=== PATIENT | male | born 1965 | race Caucasian/White ===

== ENCOUNTER 2016-07-09 18:46 | Inpatient (IN) | payer OTHER ==
[~2016-07-09] VITALS: Ht 167.6 cm; Wt 91.9 kg
[2016-07-09 01:40] VITALS: BP 160/96
[~2016-07-09 18:46] MED LIST: AMLODIPINE-BEN1 EACH PO; ASPIR-LOW81 MG PO; BENAZEPRIL HCL10 MG PO; EFFEXOR XR150 MG PO; FOLIC ACID1 MG PO; GEMFIBROZIL600 MG PO; GLUCOPHAGE500 MG PO; HUMULIN N100 UNITS/ SC; INSULIN SYRING1 EA11 MC; LANTUS (UNITS)1 UNIT IV; LANTUS 10100 UNITS/ SC; LEVEMIR FL100 UNITS/ SC; LEVEMIR100 UNIT/2 SC; LISINOPRIL5 MG PO; LO-DOSE ASPIRIN81 M1 PO; LOPID600 MG PO; LORTAB 5-325 M1 EACH PO; LOTENSIN10 MG PO; METFORMIN HCL500 MG PO; NOVOLIN N100 UNITS/ SQ; NOVOLOG 10100 UNITS/ SC; NOVOLOG PE100 UNITS/ SC; NOVOLOG100 UNIT/1 SC; PANTOPRAZOLE SO40 MG PO; PRILOSEC20 MG PO; PROTONIX40 MG PO; TUMS500 MG PO; URSODIOL300 MG PO; VENLAFAXINE HC150 M1 PO
[2016-07-09 19:21] LABS: HEMATOCRIT 37.2 % (38.0-50.0); MCH 25.6 PG (29.0-34.0); MCHC 33.1 G/DL (30.0-36.0); MCV 77.5 FL (86-99); PLATELET COUNT 283 K/uL (156-360); RBC DIS.WIDTH-CV 16.1 % (11.8-14.6); RBC DIS.WIDTH-SD 44.7 % (39-53); WHITE BLOOD COUNT 7.9 K/uL (4.1-10.2)
[2016-07-09 19:28] LABS: CHLORIDE 89 mEq/L (99-109); POTASSIUM 5.4 mEq/L (3.7-5.4); SODIUM 120 mEq/L (136-147)
[2016-07-09 19:31] LABS: ANION GAP 18 MEQ/L (2-14)
[2016-07-09 19:32] LABS: TOTAL BILIRUBIN 0.3 mg/dL (0.0-1.0)
[2016-07-09 19:33] LABS: ALKALINE PHOSPHATASE 172 IU/L (3-129)
[2016-07-09 19:34] LABS: GFR ESTIMATE (CALCULATED) 30 mL/min/
[2016-07-09 19:35] LABS: UREA NITROGEN (BUN) 50 mg/dL (9-23)
[2016-07-09 19:46] LABS: GLUCOSE 739 mg/dL (70-99)
[2016-07-09 19:58] LABS: CARBON DIOXIDE (BICARBONATE) 15.6 MEQ/L (20-31)
[2016-07-09 20:14] LABS: TROP-I INTERPRETATION NEGATIVE; TROPONIN-I 0.01 ng/mL (0.0-0.30)
[2016-07-09 20:52] LABS: ADD MIUA? NO; BILIRUBIN NEGATIVE; BLOOD NEGATIVE; COLOR STRAW ((YELLOW)); GLUCOSE (STRIP) >=500; KETONES 20; LEUKOCYTES NEGATIVE; NITRITE NEGATIVE; PROTEIN (STRIP) 30; UCUL ADDED? NO; UROBILINOGEN 0.2 MG/DL (0.2-1.0)
[2016-07-09] MEDS ORDERED: LISINOPRIL10 MG PO (21:45)
[2016-07-09] MEDS ORDERED: TRESIBA FL200 UNIT/1 SC (21:47)
[2016-07-09] MEDS ORDERED: CITALOPRAM HBR10 MG PO (21:47)
[2016-07-09] MEDS ORDERED: OMEPRAZOLE20 M2 PO (21:47)
[2016-07-09] MEDS ORDERED: NOVOLOG PE100 UNITS/ SC (21:47)
[2016-07-09] MEDS ORDERED: SIMVASTATIN20 MG PO (21:47)
[2016-07-10] VITALS (11 sets, daily range): BP systolic 106–160; BP diastolic 63–96
[2016-07-10 00:32] LABS: POTASSIUM 5.2 mEq/L (3.7-5.4)
[2016-07-10 00:35] LABS: ANION GAP 15 MEQ/L (2-14)
[2016-07-10 00:37] LABS: GFR ESTIMATE (CALCULATED) 38 mL/min/
[2016-07-10 00:38] LABS: UREA NITROGEN (BUN) 45 mg/dL (9-23)
[2016-07-10 00:49] LABS: CHLORIDE 98 mEq/L (99-109); GLUCOSE 450 mg/dL (70-99); SODIUM 130 mEq/L (136-147)
[2016-07-10 01:03] LABS: POINT-OF-CARE METER ID UU14100415
[2016-07-10 02:11] LABS: POINT-OF-CARE METER ID UU14162636
[2016-07-10 02:54] LABS: METH RESISTANT S AUREUS PCR NEGATIVE (NEGATIVE)
[2016-07-10 02:56] LABS: PROBE CHECK PASS; SPECIMEN PROCESSING CONTROL PASS
[2016-07-10 03:14] LABS: POINT-OF-CARE METER ID UU14162636
[2016-07-10 04:14] LABS: POINT-OF-CARE METER ID UU14162636
[2016-07-10 04:36] LABS: CHLORIDE 102 mEq/L (99-109); POTASSIUM 4.5 mEq/L (3.7-5.4); SODIUM 132 mEq/L (136-147)
[2016-07-10 04:40] LABS: ANION GAP 15 MEQ/L (2-14)
[2016-07-10 04:42] LABS: GFR ESTIMATE (CALCULATED) 45 mL/min/
[2016-07-10 04:43] LABS: GLUCOSE 200 mg/dL (70-99); UREA NITROGEN (BUN) 39 mg/dL (9-23)
[2016-07-10 05:19] LABS: POINT-OF-CARE METER ID UU14162636
[2016-07-10 06:38] LABS: POINT-OF-CARE METER ID UU14162636
[2016-07-10 07:21] LABS: POINT-OF-CARE METER ID UU14162636
[2016-07-10 08:18] LABS: POINT-OF-CARE METER ID UU14162636
[2016-07-10 08:39] LABS: Estimated Average Glucose 415 mg/dL (70-123)
[2016-07-10 08:41] LABS: HEMOGLOBIN A1c (GLYCOHEMOGLOB) 16.1 % HGB (Below 5.7)
[2016-07-10 09:19] LABS: POINT-OF-CARE METER ID UU14162636
[2016-07-10 09:19] LABS: ANION GAP 10 MEQ/L (2-14); CHLORIDE 102 MEQ/L (99-109); POTASSIUM 3.7 MEQ/L (3.7-5.4); SAMPLE HEMOLYSIS CHECK 0; SAMPLE ICTERIC CHECK 0; SAMPLE LIPEMIA CHECK 0; SODIUM 136 MEQ/L (136-147)
[2016-07-10 09:25] LABS: GFR ESTIMATE (CALCULATED) 57 mL/min/; GLUCOSE 140 mg/dL (70-99); UREA NITROGEN (BUN) 36 mg/dL (9-23)
[2016-07-10 10:40] LABS: POINT-OF-CARE METER ID UU14162636
[2016-07-10 10:50] LABS: POINT-OF-CARE METER ID UU14100415; POINT-OF-CARE USER ID NUTMMM10
[2016-07-10 10:50] LABS: POINT-OF-CARE METER ID UU14100415
[2016-07-10 10:50] LABS: POINT-OF-CARE METER ID UU14100415
[2016-07-10 11:31] LABS: POINT-OF-CARE METER ID UU14162636
[2016-07-10 12:38] LABS: POINT-OF-CARE METER ID UU14162636
[2016-07-10 12:50] LABS: ANION GAP 10 MEQ/L (2-14); CHLORIDE 102 MEQ/L (99-109); GFR ESTIMATE (CALCULATED) > 59 mL/min/; GLUCOSE 154 mg/dL (70-99); HDL CHOLESTEROL 27 MG/DL (Desirable>=40); NON-HDL CHOLESTEROL 221 mg/dL (Desirable<160); POTASSIUM 4.4 MEQ/L (3.7-5.4); SAMPLE HEMOLYSIS CHECK 0; SAMPLE ICTERIC CHECK 0; SAMPLE LIPEMIA CHECK 0; SODIUM 135 MEQ/L (136-147); TOTAL CHOLESTEROL 248 mg/dL (Desirable<200); TRIGLYCERIDES 928 MG/DL (Normal: <150); UREA NITROGEN (BUN) 33 mg/dL (9-23)
[2016-07-10 17:28] LABS: ANION GAP 12 MEQ/L (2-14); CHLORIDE 99 MEQ/L (99-109); GFR ESTIMATE (CALCULATED) 52 mL/min/; GLUCOSE 360 mg/dL (70-99); POTASSIUM 4.3 MEQ/L (3.7-5.4); SAMPLE HEMOLYSIS CHECK 0; SAMPLE ICTERIC CHECK 0; SAMPLE LIPEMIA CHECK 0; SODIUM 130 MEQ/L (136-147); UREA NITROGEN (BUN) 31 mg/dL (9-23)
[2016-07-10 17:31] LABS: POINT-OF-CARE METER ID UU14162636
[2016-07-11 00:14] VITALS: BP 150/94
[2016-07-11 07:53] VITALS: BP 139/86
[2016-07-11 08:38] LABS: POINT-OF-CARE METER ID UU13113807; POINT-OF-CARE USER ID 606021404
[2016-07-11 09:06] LABS: GFR ESTIMATE (CALCULATED) > 59 mL/min/; GLUCOSE 229 mg/dL (70-99); SODIUM 132 MEQ/L (136-147); UREA NITROGEN (BUN) 21 mg/dL (9-23)
[2016-07-11 09:07] LABS: ANION GAP 12 MEQ/L (2-14); CHLORIDE 99 MEQ/L (99-109); SAMPLE HEMOLYSIS CHECK 0; SAMPLE ICTERIC CHECK 0; SAMPLE LIPEMIA CHECK 0
[2016-07-11 10:00] LABS: POINT-OF-CARE METER ID UU14162636; POINT-OF-CARE USER ID PHATLC
[2016-07-11 12:18] LABS: POINT-OF-CARE METER ID UU13113807
[2016-07-11 15:38] VITALS: BP 123/75
[2016-07-11 17:16] LABS: POINT-OF-CARE METER ID UU13113698; POINT-OF-CARE USER ID 606021404
[2016-07-11 20:00] VITALS: BP 122/81
[2016-07-12] VITALS: BP 143/84
[2016-07-12 01:07] LABS: POINT-OF-CARE METER ID UU13113807
[2016-07-12 05:05] LABS: POINT-OF-CARE METER ID UU13113807
[2016-07-12 05:56] LABS: ALKALINE PHOSPHATASE 137 IU/L (3-129); ANION GAP 13 MEQ/L (2-14); CHLORIDE 102 MEQ/L (99-109); GFR ESTIMATE (CALCULATED) 57 mL/min/; GLUCOSE 220 mg/dL (70-99); POTASSIUM 4.1 MEQ/L (3.7-5.4); SAMPLE HEMOLYSIS CHECK 0; SAMPLE ICTERIC CHECK 0; SAMPLE LIPEMIA CHECK 0; SODIUM 134 MEQ/L (136-147); TOTAL BILIRUBIN 0.3 MG/DL (0.0-1.0); UREA NITROGEN (BUN) 22 mg/dL (9-23)
[2016-07-12 06:53] LABS: HEMATOCRIT 30.2 % (38.0-50.0); MCH 25.7 PG (29.0-34.0); MCHC 32.8 G/DL (30.0-36.0); MCV 78.4 FL (86-99); RBC DIS.WIDTH-CV 15.9 % (11.8-14.6); RBC DIS.WIDTH-SD 44.5 % (39-53); RED BLOOD COUNT 3.85 M/uL (4.00-5.50)
[2016-07-12 07:58] LABS: MEAN PLAT.VOLUME 12.4 uM^3 (9.0-12.4); PLAT.SUFFICIENCY ADEQUATE
[2016-07-12 08:00] VITALS: BP 134/82
[2016-07-12 08:00] LABS: PLATELET COUNT 194 K/uL (156-360)
[2016-07-12 08:33] LABS: POINT-OF-CARE METER ID UU13113807
[2016-07-12 16:00] VITALS: BP 130/82
[2016-07-12 17:44] LABS: POINT-OF-CARE METER ID UU13113807
[2016-07-12 21:52] LABS: POINT-OF-CARE METER ID UU13113807
[2016-07-12 23:25] VITALS: BP 114/66
[2016-07-13 06:26] LABS: ANION GAP 12 MEQ/L (2-14); CHLORIDE 101 MEQ/L (99-109); GFR ESTIMATE (CALCULATED) 52 mL/min/; GLUCOSE 284 mg/dL (70-99); POTASSIUM 4.5 MEQ/L (3.7-5.4); SAMPLE HEMOLYSIS CHECK 0; SAMPLE ICTERIC CHECK 0; SAMPLE LIPEMIA CHECK 0; SODIUM 135 MEQ/L (136-147); UREA NITROGEN (BUN) 25 mg/dL (9-23)
[2016-07-13 08:00] VITALS: BP 141/86
[2016-07-13 08:35] LABS: POINT-OF-CARE METER ID UU13113807
[2016-07-13] MEDS ORDERED: ZOLPIDEM TARTRAT5 MG PO (12:09)
[2016-07-13 12:57] LABS: POINT-OF-CARE METER ID UU13113807
[2016-07-13 13:00] LABS: POINT-OF-CARE METER ID UU13113807
[2016-07-13 13:01] LABS: POINT-OF-CARE METER ID UU13113698
== END 2016-07-13 14:10 | disposition home or self-care (01) | DRG 639 ==
LOC: EME 18:46 → EDOF 23:51 → 4WEST 23:51 → 4SOUTH 23:51 → 4WEST 07-10 01:20 → 4SOUTH 07-10 23:52
PROVIDERS: Emergency Medicine; Hospitalist; Internal Medicine; Internal Medicine Critical Care Medicine; Internal Medicine Nephrology
DX: E13.10 Other specified diabetes mellitus with ketoacidosis without coma (principal); Z79.4 Long term (current) use of insulin; Z91.120 Patient's intentional underdosing of medication regimen due to financial hardship; F32.9 Major depressive disorder, single episode, unspecified; K21.9 Gastro-esophageal reflux disease without esophagitis; E78.5 Hyperlipidemia, unspecified; I10 Essential (primary) hypertension; F41.9 Anxiety disorder, unspecified; Z87.891 Personal history of nicotine dependence; D64.9 Anemia, unspecified
CPT/HCPCS: 71010; 80048; 80048 91; 80053; 80061; 81003; 82010; 82803; 82948; 83036; 84100; 84484; 85027; 87641; 93005; 99281; 99285; G0480; J1815; J7030; J7042; J7050; J7120

== ENCOUNTER 2016-07-25 00:21 | Emergency (ER) | payer OTHER ==
[~2016-07-25] VITALS: Ht 167.6 cm; Wt 93.7 kg
[~2016-07-25 00:21] MED LIST changes: +CITALOPRAM HBR10 MG PO; +LISINOPRIL10 MG PO; +OMEPRAZOLE20 M2 PO; +SIMVASTATIN20 MG PO; +TRESIBA FL200 UNIT/1 SC; +ZOLPIDEM TARTRAT5 MG PO
[2016-07-25 00:38] LABS: POINT-OF-CARE METER ID UU13113778
[2016-07-25 00:51] LABS: HEMATOCRIT 36.2 % (38.0-50.0); MCH 28.9 PG (29.0-34.0); MCHC 37.3 G/DL (30.0-36.0); MCV 77.5 FL (86-99); MEAN PLAT.VOLUME 12.6 uM^3 (9.0-12.4); RBC DIS.WIDTH-CV 15.4 % (11.8-14.6); RBC DIS.WIDTH-SD 42.5 % (39-53); WHITE BLOOD COUNT 7.1 K/uL (4.1-10.2)
[2016-07-25 00:52] LABS: PLATELET COUNT 359 K/uL (156-360); RED BLOOD COUNT 4.67 M/uL (4.00-5.50)
[2016-07-25 02:02] LABS: ALKALINE PHOSPHATASE 139 IU/L (3-129); ANION GAP 16 MEQ/L (2-14); CHLORIDE 95 MEQ/L (99-109); GFR ESTIMATE (CALCULATED) 34 mL/min/; GLUCOSE 388 mg/dL (70-99); SAMPLE HEMOLYSIS CHECK 1; SAMPLE ICTERIC CHECK 0; SAMPLE LIPEMIA CHECK 1; SODIUM 130 MEQ/L (136-147); TOTAL BILIRUBIN 0.2 MG/DL (0.0-1.0); UREA NITROGEN (BUN) 45 mg/dL (9-23)
[2016-07-25 02:04] LABS: ADD MIUA? YES; BILIRUBIN NEGATIVE; BLOOD NEGATIVE; COLOR STRAW ((YELLOW)); GLUCOSE (STRIP) >=500; KETONES NEGATIVE; LEUKOCYTES NEGATIVE; NITRITE NEGATIVE; PROTEIN (STRIP) 100; SPECIFIC GRAVITY 1.014 (1.000-1.030); UROBILINOGEN 0.2 MG/DL (0.2-1.0)
[2016-07-25 02:06] LABS: POINT-OF-CARE METER ID UU13113702
[2016-07-25 02:07] LABS: POTASSIUM 4.1 MEQ/L (3.7-5.4)
[2016-07-25 02:09] LABS: BACTERIA NONE SEEN /HPF; EPITHELIAL CELLS RARE /HPF; MUCUS NONE SEEN /LPF; RED BLOOD CELLS 0-5 /HPF (0-5); UCUL ADDED? NO; WHITE BLOOD CELLS 0-5 /HPF (0-5)
[2016-07-25 03:06] VITALS: BP 148/89
[2016-07-25 03:12] LABS: POINT-OF-CARE METER ID UU14100415; POINT-OF-CARE USER ID 515033160
== END 2016-07-25 03:07 | disposition home or self-care (01) ==
LOC: EXP 00:21 → EME 00:21 → EXP 03:07
PROVIDERS: Physician Assistant
DX: E11.65 Type 2 diabetes mellitus with hyperglycemia (principal); T38.3X6A Underdosing of insulin and oral hypoglycemic [antidiabetic] drugs, initial encounter; Z91.128 Patient's intentional underdosing of medication regimen for other reason; I10 Essential (primary) hypertension; K21.9 Gastro-esophageal reflux disease without esophagitis; R56.9 Unspecified convulsions; F32.9 Major depressive disorder, single episode, unspecified; Z87.891 Personal history of nicotine dependence
CPT/HCPCS: 80053; 81003; 82948; 85027; 99281; 99284; J7030

== ENCOUNTER 2016-11-17 08:03 | Inpatient (IN) | payer OTHER ==
[~2016-11-17] VITALS: Ht 167.6 cm; Wt 93.5 kg
[2016-11-17 08:24] LABS: POINT-OF-CARE METER ID UU13113778
[2016-11-17 09:47] LABS: EOSINOPHIL (%) 1.1 % (0-5); EOSINOPHIL COUNT 0.1 K/uL (0-0.3); HEMATOCRIT 33.5 % (38.0-50.0); IMMATURE GRANULOCYTE COUNT 0.1 K/uL; INSTRUMENT ABS NEUTROPHIL CT 8.8 K/uL; LYMPHOCYTE COUNT 2.4 K/uL (1.0-2.8); MCHC 33.4 G/DL (30.0-36.0); MCV 74.8 FL (86-99); MEAN PLAT.VOLUME 11.9 uM^3 (9.0-12.4); MONOCYTE (%) 6.1 % (3-12); MONOCYTE COUNT 0.8 K/uL (0-0.8); NEUTROPHIL (%) 72.2 % (45-76); NEUTROPHIL COUNT 8.8 K/uL (1.8-6.4); PLATELET COUNT 324 K/uL (156-360); RBC DIS.WIDTH-CV 14.2 % (11.8-14.6); RBC DIS.WIDTH-SD 37.5 % (39-53); RED BLOOD COUNT 4.48 M/uL (4.00-5.50); WHITE BLOOD COUNT 12.3 K/uL (4.1-10.2)
[2016-11-17 09:49] LABS: CHLORIDE 84 mEq/L (99-109); POTASSIUM 4.4 mEq/L (3.7-5.4)
[2016-11-17 09:51] LABS: GLUCOSE 397 mg/dL (70-99)
[2016-11-17 09:52] LABS: ANION GAP 18 MEQ/L (2-14)
[2016-11-17 09:53] LABS: TOTAL BILIRUBIN 0.3 mg/dL (0.0-1.0)
[2016-11-17 09:54] LABS: ALKALINE PHOSPHATASE 175 IU/L (3-129)
[2016-11-17 09:55] LABS: GFR ESTIMATE (CALCULATED) 32 mL/min/; SODIUM 118 mEq/L (136-147)
[2016-11-17 09:56] LABS: UREA NITROGEN (BUN) 42 mg/dL (9-23)
[2016-11-17 10:15] LABS: BASE EXCESS -6.1 mEq/L (-3 to +3)
[2016-11-17 10:16] LABS: BICARBONATE 18.9 mEq/L (22-26); COMMENTS - BLOOD GASES C+; PCO2 35 mm Hg (35-45); PO2 75 mm Hg (80-100); SITE LR; TOTAL RESP RATE 18 resp/min; pH 7.34 (7.35-7.45)
[2016-11-17 10:35] LABS: ADD MIUA? NO; BILIRUBIN NEGATIVE; BLOOD NEGATIVE; COLOR YELLOW ((YELLOW)); GLUCOSE (STRIP) >=500; KETONES NEGATIVE; LEUKOCYTES NEGATIVE; NITRITE NEGATIVE; PROTEIN (STRIP) 30; SPECIFIC GRAVITY 1.011 (1.000-1.030); UCUL ADDED? NO; UROBILINOGEN 0.2 MG/DL (0.2-1.0)
[2016-11-17 13:27] LABS: POINT-OF-CARE METER ID UU13113747
[2016-11-17] MEDS ORDERED: BASAGLAR K100 UNIT/1 SC ×2 (16:05→16:06)
[2016-11-17 19:01] LABS: ANION GAP 13 MEQ/L (2-14); CHLORIDE 92 MEQ/L (99-109); GFR ESTIMATE (CALCULATED) 40 mL/min/; GLUCOSE 393 mg/dL (70-99); POTASSIUM 4.7 MEQ/L (3.7-5.4); SAMPLE HEMOLYSIS CHECK 1; SAMPLE ICTERIC CHECK 0; SAMPLE LIPEMIA CHECK 2; SODIUM 123 MEQ/L (136-147); UREA NITROGEN (BUN) 40 mg/dL (9-23)
[2016-11-17 22:29] LABS: ANION GAP 13 MEQ/L (2-14); CHLORIDE 92 MEQ/L (99-109); GFR ESTIMATE (CALCULATED) 42 mL/min/; GLUCOSE 460 mg/dL (70-99); POTASSIUM 5.1 MEQ/L (3.7-5.4); SAMPLE HEMOLYSIS CHECK 1; SAMPLE ICTERIC CHECK 0; SAMPLE LIPEMIA CHECK 2; SODIUM 121 MEQ/L (136-147); UREA NITROGEN (BUN) 38 mg/dL (9-23)
[2016-11-17 23:31] VITALS: BP 126/62
[2016-11-18 04:00] VITALS: BP 144/88
[2016-11-18 07:13] LABS: ANION GAP 11 MEQ/L (2-14); CHLORIDE 96 MEQ/L (99-109); GFR ESTIMATE (CALCULATED) 42 mL/min/; POTASSIUM 5.1 MEQ/L (3.7-5.4); SAMPLE HEMOLYSIS CHECK 1; SAMPLE ICTERIC CHECK 0; SAMPLE LIPEMIA CHECK 2; SODIUM 127 MEQ/L (136-147); UREA NITROGEN (BUN) 37 mg/dL (9-23)
[2016-11-18 07:14] LABS: GLUCOSE 484 mg/dL (70-99)
[2016-11-18 07:41] LABS: Estimated Average Glucose 395 mg/dL (70-123)
[2016-11-18 08:19] VITALS: BP 140/77
[2016-11-18 08:24] LABS: ANION GAP 10 MEQ/L (2-14); CHLORIDE 96 MEQ/L (99-109); GFR ESTIMATE (CALCULATED) 42 mL/min/; GLUCOSE 490 mg/dL (70-99); POTASSIUM 5.3 MEQ/L (3.7-5.4); SAMPLE HEMOLYSIS CHECK 1; SAMPLE ICTERIC CHECK 0; SAMPLE LIPEMIA CHECK 2; SODIUM 127 MEQ/L (136-147); UREA NITROGEN (BUN) 36 mg/dL (9-23)
[2016-11-18 09:28] LABS: HEMOGLOBIN A1c (GLYCOHEMOGLOB) 15.4 % HGB (Below 5.7)
[2016-11-18 14:12] LABS: ANION GAP 7 MEQ/L (2-14); CHLORIDE 97 MEQ/L (99-109); SAMPLE HEMOLYSIS CHECK 1; SAMPLE ICTERIC CHECK 0; SAMPLE LIPEMIA CHECK 2; SODIUM 125 MEQ/L (136-147)
[2016-11-18 14:28] LABS: GFR ESTIMATE (CALCULATED) 40 mL/min/; GLUCOSE 489 mg/dL (70-99); UREA NITROGEN (BUN) 34 mg/dL (9-23)
[2016-11-18 16:37] VITALS: BP 118/64
[2016-11-18 16:46] LABS: ANION GAP 12 MEQ/L (2-14); CHLORIDE 96 MEQ/L (99-109); GFR ESTIMATE (CALCULATED) 42 mL/min/; GLUCOSE 371 mg/dL (70-99); POTASSIUM 4.3 MEQ/L (3.7-5.4); SAMPLE HEMOLYSIS CHECK 1; SAMPLE ICTERIC CHECK 0; SAMPLE LIPEMIA CHECK 2; SODIUM 126 MEQ/L (136-147); UREA NITROGEN (BUN) 34 mg/dL (9-23)
[2016-11-18 19:30] VITALS: BP 123/68
[2016-11-18 20:19] LABS: ANION GAP 8 MEQ/L (2-14); CHLORIDE 96 MEQ/L (99-109); GFR ESTIMATE (CALCULATED) 45 mL/min/; GLUCOSE 388 mg/dL (70-99); POTASSIUM 4.6 MEQ/L (3.7-5.4); SAMPLE HEMOLYSIS CHECK 0; SAMPLE ICTERIC CHECK 0; SAMPLE LIPEMIA CHECK 1; SODIUM 125 MEQ/L (136-147); UREA NITROGEN (BUN) 33 mg/dL (9-23)
[2016-11-19 06:33] LABS: POINT-OF-CARE METER ID UU14117124
[2016-11-19 06:59] LABS: ALKALINE PHOSPHATASE 141 IU/L (3-129); ANION GAP 10 MEQ/L (2-14); CHLORIDE 100 MEQ/L (99-109); GFR ESTIMATE (CALCULATED) 45 mL/min/; GLUCOSE 342 mg/dL (70-99); POTASSIUM 4.4 MEQ/L (3.7-5.4); SAMPLE HEMOLYSIS CHECK 0; SAMPLE ICTERIC CHECK 0; SAMPLE LIPEMIA CHECK 1; TOTAL BILIRUBIN 0.3 MG/DL (0.0-1.0); UREA NITROGEN (BUN) 31 mg/dL (9-23)
[2016-11-19 07:00] LABS: HEMATOCRIT 31.8 % (38.0-50.0); MCH 24.5 PG (29.0-34.0); MCHC 31.4 G/DL (30.0-36.0); MCV 77.9 FL (86-99); RBC DIS.WIDTH-CV 14.4 % (11.8-14.6); RBC DIS.WIDTH-SD 40.3 % (39-53); RED BLOOD COUNT 4.08 M/uL (4.00-5.50); WHITE BLOOD COUNT 5.8 K/uL (4.1-10.2)
[2016-11-19 07:03] LABS: SODIUM 132 MEQ/L (136-147)
[2016-11-19 07:34] LABS: MEAN PLAT.VOLUME 11.6 uM^3 (9.0-12.4); PLAT.SUFFICIENCY ADEQUATE
[2016-11-19 07:57] LABS: PLATELET COUNT 216 K/uL (156-360)
[2016-11-19 08:14] VITALS: BP 131/73
[2016-11-19 11:23] LABS: POINT-OF-CARE METER ID UU14188577
[2016-11-19 17:22] VITALS: BP 133/73
[2016-11-19 23:44] VITALS: BP 145/82
[2016-11-20 06:44] LABS: POINT-OF-CARE METER ID UU14208753
[2016-11-20 07:50] VITALS: BP 139/85
[2016-11-20 15:44] VITALS: BP 134/77
[2016-11-20 16:58] LABS: POINT-OF-CARE METER ID UU14188577
[2016-11-20 17:00] LABS: POINT-OF-CARE METER ID UU14117124
[2016-11-20 17:00] LABS: POINT-OF-CARE METER ID UU14188577
[2016-11-20 17:00] LABS: POINT-OF-CARE METER ID UU14188577
[2016-11-21 00:31] VITALS: BP 130/68
[2016-11-21 06:25] LABS: HEMATOCRIT 30.4 % (38.0-50.0); MCHC 30.6 G/DL (30.0-36.0); MCV 78.4 FL (86-99); MEAN PLAT.VOLUME 11.9 uM^3 (9.0-12.4); PLATELET COUNT 191 K/uL (156-360); RBC DIS.WIDTH-CV 14.5 % (11.8-14.6); RBC DIS.WIDTH-SD 40.5 % (39-53); RED BLOOD COUNT 3.88 M/uL (4.00-5.50); WHITE BLOOD COUNT 6.4 K/uL (4.1-10.2)
[2016-11-21 06:32] LABS: POINT-OF-CARE METER ID UU14188577
[2016-11-21 07:00] LABS: ALKALINE PHOSPHATASE 127 IU/L (3-129); ANION GAP 8 MEQ/L (2-14); CHLORIDE 101 MEQ/L (99-109); GFR ESTIMATE (CALCULATED) 45 mL/min/; GLUCOSE 358 mg/dL (70-99); POTASSIUM 4.5 MEQ/L (3.7-5.4); SAMPLE HEMOLYSIS CHECK 0; SAMPLE ICTERIC CHECK 0; SAMPLE LIPEMIA CHECK 1; SODIUM 133 MEQ/L (136-147); UREA NITROGEN (BUN) 25 mg/dL (9-23)
[2016-11-21 07:02] LABS: TOTAL BILIRUBIN 0.2 MG/DL (0.0-1.0)
[2016-11-21 07:49] VITALS: BP 134/81
[2016-11-21 11:09] VITALS: BP 132/85
[2016-11-21 11:22] LABS: POINT-OF-CARE METER ID UU14117124
[2016-11-21 15:30] VITALS: BP 123/77
[2016-11-21 16:25] LABS: POINT-OF-CARE METER ID UU14188577
[2016-11-21 19:21] VITALS: BP 158/90
[2016-11-21 23:25] VITALS: BP 138/85
[2016-11-22 02:44] VITALS: BP 181/90
[2016-11-22 06:29] LABS: POINT-OF-CARE METER ID UU14208753
[2016-11-22 06:44] LABS: HEMATOCRIT 29.9 % (38.0-50.0); MCH 24.9 PG (29.0-34.0); MCHC 31.4 G/DL (30.0-36.0); MCV 79.3 FL (86-99); MEAN PLAT.VOLUME 11.7 uM^3 (9.0-12.4); PLATELET COUNT 169 K/uL (156-360); RBC DIS.WIDTH-CV 14.6 % (11.8-14.6); RBC DIS.WIDTH-SD 41.8 % (39-53); RED BLOOD COUNT 3.77 M/uL (4.00-5.50); WHITE BLOOD COUNT 5.9 K/uL (4.1-10.2)
[2016-11-22 07:11] LABS: ANION GAP 9 MEQ/L (2-14); CHLORIDE 102 MEQ/L (99-109); GFR ESTIMATE (CALCULATED) 52 mL/min/; GLUCOSE 204 mg/dL (70-99); POTASSIUM 4.1 MEQ/L (3.7-5.4); SAMPLE HEMOLYSIS CHECK 0; SAMPLE ICTERIC CHECK 0; SAMPLE LIPEMIA CHECK 0; SODIUM 137 MEQ/L (136-147); UREA NITROGEN (BUN) 26 mg/dL (9-23)
[2016-11-22 08:41] VITALS: BP 128/87
[2016-11-22 12:01] VITALS: BP 108/67
[2016-11-22 12:17] LABS: POINT-OF-CARE METER ID UU14208753
[2016-11-22 16:31] VITALS: BP 131/69
[2016-11-22 19:37] VITALS: BP 129/76
[2016-11-22] MEDS ORDERED: ARIPIPRAZOLE2 MG PO (20:19)
[2016-11-22] MEDS ORDERED: GUAIFENESI100 MG/5 M PO (20:20)
[2016-11-22] MEDS ORDERED: FLONASE16 G1 BOTH NARES (20:21)
[2016-11-22] MEDS ORDERED: PANTOPRAZOLE SO40 MG PO (20:22)
[2016-11-22] MEDS ORDERED: NOVOLOG PE100 UNITS/ SC (20:24)
[2016-11-22] MEDS ORDERED: LEVEMIR100 UNIT/2 SC ×2 (20:25→20:26)
== END 2016-11-22 21:55 | disposition home or self-care (01) | DRG 641 ==
LOC: EME 08:03 → 3EAST 12:10 → EDOF 12:10 → ENRESERV 12:33 → CANRESERV 12:33 → ENRESERV 13:47 → 3EAST 16:04
PROVIDERS: Emergency Medicine; Family Medicine; Internal Medicine; Internal Medicine Nephrology
DX: E87.1 Hypo-osmolality and hyponatremia (principal); N17.9 Acute kidney failure, unspecified; E11.65 Type 2 diabetes mellitus with hyperglycemia; E87.2 Acidosis; E87.5 Hyperkalemia; E86.0 Dehydration; R55 Syncope and collapse; F09 Unspecified mental disorder due to known physiological condition; F34.1 Dysthymic disorder; I12.9 Hypertensive chronic kidney disease with stage 1 through stage 4 chronic kidney disease, or unspecified chronic kidney disease; N18.3 Chronic kidney disease, stage 3 (moderate); E78.5 Hyperlipidemia, unspecified; K21.9 Gastro-esophageal reflux disease without esophagitis; Z91.14 Patient's other noncompliance with medication regimen; Z91.19 Patient's noncompliance with other medical treatment and regimen; Z79.4 Long term (current) use of insulin; Z86.73 Personal history of transient ischemic attack (TIA), and cerebral infarction without residual deficits; Z87.891 Personal history of nicotine dependence; Z87.442 Personal history of urinary calculi; Z80.1 Family history of malignant neoplasm of trachea, bronchus and lung; Z82.49 Family history of ischemic heart disease and other diseases of the circulatory system; Z83.3 Family history of diabetes mellitus; D64.9 Anemia, unspecified
CPT/HCPCS: 36600; 80048; 80048 91; 80053; 81003; 82533 91; 82803; 82948; 83036; 83935; 84300; 84443; 85025; 85027; 99281; 99285; J1815; J1885; J7030

== ENCOUNTER 2017-02-02 17:05 | Inpatient (IN) | payer OTHER ==
[~2017-02-02] VITALS: Ht 167.6 cm; Wt 94.7 kg
[~2017-02-02 17:05] MED LIST changes: +ARIPIPRAZOLE2 MG PO; +BASAGLAR K100 UNIT/1 SC; +FLONASE16 G1 BOTH NARES; +GUAIFENESI100 MG/5 M PO
[2017-02-02 18:02] LABS: HEMATOCRIT 33.3 % (38.0-50.0); MCH 24.4 PG (29.0-34.0); MCHC 33.9 G/DL (30.0-36.0); MCV 71.8 FL (86-99); NRBC (%) 0.2 /100 WBC (0-0); PLATELET COUNT 284 K/uL (156-360); RBC DIS.WIDTH-CV 16.9 % (11.8-14.6); RBC DIS.WIDTH-SD 42.1 % (39-53); RED BLOOD COUNT 4.64 M/uL (4.00-5.50); WHITE BLOOD COUNT 8.7 K/uL (4.1-10.2)
[2017-02-02] MEDS ORDERED: ABILIFY2 MG PO (18:26)
[2017-02-02] MEDS ORDERED: VENLAFAXINE225 MG PO (18:29)
[2017-02-02] MEDS ORDERED: ZOLPIDEM TARTRA10 MG PO (18:29)
[2017-02-02 18:40] LABS: ANION GAP 13 MEQ/L (2-14); CHLORIDE 91 MEQ/L (99-109); POTASSIUM 4.9 MEQ/L (3.7-5.4); SAMPLE HEMOLYSIS CHECK 2; SAMPLE ICTERIC CHECK 0; SAMPLE LIPEMIA CHECK 2; SODIUM 121 MEQ/L (136-147); TOTAL BILIRUBIN 0.3 MG/DL (0.0-1.0)
[2017-02-02 18:42] LABS: CARBON DIOXIDE (BICARBONATE) 19.5 MEQ/L (20-31)
[2017-02-02 18:55] LABS: ALKALINE PHOSPHATASE 170 IU/L (3-129); GFR ESTIMATE (CALCULATED) 37 mL/min/; UREA NITROGEN (BUN) 35 mg/dL (9-23)
[2017-02-02 18:59] LABS: GLUCOSE 650 mg/dL (70-99)
[2017-02-02 19:18] LABS: ADD MIUA? NO; BILIRUBIN NEGATIVE; BLOOD NEGATIVE; COLOR STRAW ((YELLOW)); GLUCOSE (STRIP) >=500; KETONES 5; LEUKOCYTES NEGATIVE; NITRITE NEGATIVE; PROTEIN (STRIP) 30; SPECIFIC GRAVITY 1.022 (1.000-1.030); UCUL ADDED? NO; UROBILINOGEN 0.2 MG/DL (0.2-1.0)
[2017-02-02] MEDS ORDERED: LEVEMIR FL100 UNIT/1 SC (20:10)
[2017-02-02] MEDS ORDERED: FLONASE16 G1 BOTH NARES (20:14)
[2017-02-02] MEDS ORDERED: PRILOSEC20 MG PO (20:15)
[2017-02-02] MEDS ORDERED: NOVOLOG PE100 UNITS/ SC (20:18)
[2017-02-02 22:30] VITALS: BP 144/76
[2017-02-03 04:08] LABS: GLUCOSE 606 mg/dL (70-99)
[2017-02-03 06:56] LABS: Estimated Average Glucose 401 mg/dL (70-123)
[2017-02-03 07:05] LABS: HEMOGLOBIN A1c (GLYCOHEMOGLOB) 15.6 % HGB (Below 5.7)
[2017-02-03 07:33] VITALS: BP 128/77
[2017-02-03 11:17] VITALS: BP 122/78
[2017-02-03 15:59] LABS: POINT-OF-CARE METER ID UU13113774
[2017-02-03 16:03] VITALS: BP 126/67
[2017-02-03 17:21] LABS: ANION GAP 11 MEQ/L (2-14); CHLORIDE 97 MEQ/L (99-109); GFR ESTIMATE (CALCULATED) 48 mL/min/; SAMPLE HEMOLYSIS CHECK 3; SAMPLE ICTERIC CHECK 0; SAMPLE LIPEMIA CHECK 0; SODIUM 126 MEQ/L (136-147); UREA NITROGEN (BUN) 33 mg/dL (9-23)
[2017-02-03 17:22] LABS: POTASSIUM 5.4 MEQ/L (3.7-5.4)
[2017-02-03 17:23] LABS: GLUCOSE 397 mg/dL (70-99)
[2017-02-03 20:14] VITALS: BP 124/76
[2017-02-03 21:23] LABS: POINT-OF-CARE METER ID UU13113725
[2017-02-04 04:35] VITALS: BP 117/70
[2017-02-04 05:49] LABS: POINT-OF-CARE METER ID UU13113725
[2017-02-04 06:08] LABS: HEMATOCRIT 30.4 % (38.0-50.0); MCHC 31.6 G/DL (30.0-36.0); MCV 72.9 FL (86-99); MEAN PLAT.VOLUME 11.8 uM^3 (9.0-12.4); PLATELET COUNT 214 K/uL (156-360); RBC DIS.WIDTH-CV 17.1 % (11.8-14.6); RBC DIS.WIDTH-SD 43.8 % (39-53); RED BLOOD COUNT 4.17 M/uL (4.00-5.50)
[2017-02-04 06:44] LABS: ANION GAP 11 MEQ/L (2-14); CHLORIDE 102 MEQ/L (99-109); GFR ESTIMATE (CALCULATED) > 59 mL/min/; GLUCOSE 270 mg/dL (70-99); SAMPLE HEMOLYSIS CHECK 1; SAMPLE ICTERIC CHECK 1; SAMPLE LIPEMIA CHECK 2; UREA NITROGEN (BUN) 29 mg/dL (9-23)
[2017-02-04 06:47] LABS: SODIUM 134 MEQ/L (136-147)
[2017-02-04 06:48] LABS: POTASSIUM 4.2 MEQ/L (3.7-5.4)
[2017-02-04 08:28] VITALS: BP 119/60
[2017-02-04 09:55] LABS: POINT-OF-CARE METER ID UU13113725
[2017-02-04 09:56] LABS: POINT-OF-CARE METER ID UU13113725
[2017-02-04 09:56] LABS: POINT-OF-CARE METER ID UU13113725
[2017-02-04 10:01] LABS: POINT-OF-CARE METER ID UU13113778; POINT-OF-CARE USER ID NUTJLF39
[2017-02-04 10:01] LABS: POINT-OF-CARE METER ID UU13113702
[2017-02-04 10:01] LABS: POINT-OF-CARE METER ID UU13113702
[2017-02-04 11:38] LABS: POINT-OF-CARE METER ID UU13113774
[2017-02-04 16:09] VITALS: BP 131/74
[2017-02-04 21:23] LABS: POINT-OF-CARE METER ID UU13113725
[2017-02-04 22:10] VITALS: BP 142/77
[2017-02-04 23:40] VITALS: BP 114/65
[2017-02-05 05:52] LABS: POINT-OF-CARE METER ID UU13113725
[2017-02-05 06:50] VITALS: BP 152/72
[2017-02-05 11:02] LABS: POINT-OF-CARE METER ID UU13113774
[2017-02-05 11:07] LABS: POINT-OF-CARE METER ID UU13113774
[2017-02-05] MEDS ORDERED: GLIPIZIDE10 MG PO (15:23)
== END 2017-02-05 15:49 | disposition home or self-care (01) | DRG 638 ==
LOC: EME 17:05 → EDOF 20:45 → 5EAST 20:45 → ENRESERV 20:52 → 5EAST 22:03
PROVIDERS: Family Medicine; Physician Assistant Medical
DX: E11.65 Type 2 diabetes mellitus with hyperglycemia (principal); N17.9 Acute kidney failure, unspecified; E11.22 Type 2 diabetes mellitus with diabetic chronic kidney disease; N18.3 Chronic kidney disease, stage 3 (moderate); I12.9 Hypertensive chronic kidney disease with stage 1 through stage 4 chronic kidney disease, or unspecified chronic kidney disease; F70 Mild intellectual disabilities; E87.1 Hypo-osmolality and hyponatremia; E78.5 Hyperlipidemia, unspecified; Z91.19 Patient's noncompliance with other medical treatment and regimen; F32.9 Major depressive disorder, single episode, unspecified; G31.84 Mild cognitive impairment of uncertain or unknown etiology; K21.9 Gastro-esophageal reflux disease without esophagitis; R63.1 Polydipsia; K86.1 Other chronic pancreatitis; Z79.4 Long term (current) use of insulin; Z86.73 Personal history of transient ischemic attack (TIA), and cerebral infarction without residual deficits; Z87.891 Personal history of nicotine dependence; Z91.14 Patient's other noncompliance with medication regimen
CPT/HCPCS: 80048; 80053; 81003; 82010; 82803; 82948; 83036; 84999; 85027; 90686; 99281; 99285; J1815; J7030; J7040

== ENCOUNTER 2017-04-08 22:11 | Emergency (ER) | payer SELFPAY ==
[~2017-04-08] VITALS: Ht 167.6 cm; Wt 99.7 kg
[~2017-04-08 22:11] MED LIST changes: +ABILIFY2 MG PO; +GLIPIZIDE10 MG PO; +LEVEMIR FL100 UNIT/1 SC; +VENLAFAXINE225 MG PO; +ZOLPIDEM TARTRA10 MG PO
[2017-04-08 22:42] LABS: HEMATOCRIT 33.9 % (38.0-50.0); HEMOGLOBIN 10.7 G/DL (12.5-16.6); MCH 23.4 PG (29.0-34.0); MCHC 31.6 G/DL (30.0-36.0); MCV 74.2 FL (86-99); PLATELET COUNT 227 K/uL (156-360); RBC DIS.WIDTH-CV 18.1 % (11.8-14.6); RBC DIS.WIDTH-SD 47.5 % (39-53); RED BLOOD COUNT 4.57 M/uL (4.00-5.50); WHITE BLOOD COUNT 7.6 K/uL (4.1-10.2)
[2017-04-08 23:40] LABS: ALBUMIN 4.2 G/DL (3.2-4.8); CHLORIDE 97 MEQ/L (99-109); POTASSIUM 4.7 MEQ/L (3.7-5.4); SODIUM 131 MEQ/L (136-147); TOTAL BILIRUBIN 0.2 MG/DL (0.0-1.0)
[2017-04-08 23:56] LABS: ALKALINE PHOSPHATASE 160 IU/L (3-129); ALT (GPT) 29 IU/L (3-49); AST (GOT) 26 IU/L (2-34); CREATININE 1.8 MG/DL (0.6-1.3); GFR ESTIMATE (CALCULATED) 42 mL/min/ (58.99-99999); TOTAL PROTEIN 6.6 G/DL (6.4-8.3); UREA NITROGEN (BUN) 23 mg/dL (9-23)
[2017-04-08 23:57] LABS: GLUCOSE 661 mg/dL (70-99)
[2017-04-09 00:03] LABS: APPEARANCE CLEAR ((CLEAR)); BILIRUBIN NEGATIVE; BLOOD NEGATIVE; COLOR COLORLESS ((YELLOW)); GLUCOSE (STRIP) >=500; KETONES NEGATIVE; LEUKOCYTES NEGATIVE; NITRITE NEGATIVE; PROTEIN (STRIP) 30; UCUL ADDED? NO; UROBILINOGEN 0.2 MG/DL (0.2-1.0)
[2017-04-09 02:08] LABS: CHLORIDE 102 mEq/L (99-109); POTASSIUM 4.3 mEq/L (3.7-5.4); SODIUM 132 mEq/L (136-147)
[2017-04-09 02:13] LABS: CREATININE 1.6 mg/dL (0.6-1.3); GFR ESTIMATE (CALCULATED) 48 mL/min/ (58.99-99999)
[2017-04-09 02:14] LABS: UREA NITROGEN (BUN) 22 mg/dL (9-23)
[2017-04-09 02:18] LABS: GLUCOSE 535 mg/dL (70-99)
[2017-04-09 04:17] LABS: CHLORIDE 102 mEq/L (99-109); POTASSIUM 4.2 mEq/L (3.7-5.4); SODIUM 132 mEq/L (136-147)
[2017-04-09 04:23] LABS: CREATININE 1.6 mg/dL (0.6-1.3); GFR ESTIMATE (CALCULATED) 48 mL/min/ (58.99-99999)
[2017-04-09 04:24] LABS: UREA NITROGEN (BUN) 21 mg/dL (9-23)
[2017-04-09 04:27] LABS: GLUCOSE 449 mg/dL (70-99)
[2017-04-09 05:16] VITALS: BP 129/88
== END 2017-04-09 05:14 | disposition home or self-care (01) ==
LOC: EME 22:11
PROVIDERS: Physician Assistant
DX: E11.65 Type 2 diabetes mellitus with hyperglycemia (principal); E11.22 Type 2 diabetes mellitus with diabetic chronic kidney disease; I12.9 Hypertensive chronic kidney disease with stage 1 through stage 4 chronic kidney disease, or unspecified chronic kidney disease; N18.9 Chronic kidney disease, unspecified; K21.9 Gastro-esophageal reflux disease without esophagitis; F41.9 Anxiety disorder, unspecified; F32.9 Major depressive disorder, single episode, unspecified; Z91.14 Patient's other noncompliance with medication regimen; Z87.442 Personal history of urinary calculi; Z87.891 Personal history of nicotine dependence; Z86.73 Personal history of transient ischemic attack (TIA), and cerebral infarction without residual deficits; Z90.49 Acquired absence of other specified parts of digestive tract; Z79.4 Long term (current) use of insulin; Z88.8 Allergy status to other drugs, medicaments and biological substances
CPT/HCPCS: 80048; 80048 91; 80053; 81003; 82948; 85027; J7030

== ENCOUNTER 2017-05-19 00:27 | Inpatient (IN) | payer OTHER ==
[2017-05-19] VITALS (9 sets, daily range): BP systolic 148–165; BP diastolic 84–97
[~2017-05-19] VITALS: Ht 167.6 cm; Wt 97.5 kg
[2017-05-19 01:02] LABS: CHLORIDE 97 mEq/L (99-109); SODIUM 128 mEq/L (136-147)
[2017-05-19 01:03] LABS: HEMATOCRIT 36.6 % (38.0-50.0); HEMOGLOBIN 11.8 G/DL (12.5-16.6); MCH 23.6 PG (29.0-34.0); MCHC 32.2 G/DL (30.0-36.0); MCV 73.1 FL (86-99); PLATELET COUNT 315 K/uL (156-360); RBC DIS.WIDTH-CV 17.5 % (11.8-14.6); RBC DIS.WIDTH-SD 44.4 % (39-53); RED BLOOD COUNT 5.01 M/uL (4.00-5.50); WHITE BLOOD COUNT 8.6 K/uL (4.1-10.2)
[2017-05-19 01:07] LABS: SERUM ETHYL ALCOHOL 154 mg/dL
[2017-05-19 01:08] LABS: CREATININE 1.8 mg/dL (0.6-1.3); GFR ESTIMATE (CALCULATED) 42 mL/min/ (58.99-99999)
[2017-05-19 01:09] LABS: UREA NITROGEN (BUN) 26 mg/dL (9-23)
[2017-05-19 01:14] LABS: GLUCOSE 679 mg/dL (70-99)
[2017-05-19 01:43] LABS: APPEARANCE CLEAR ((CLEAR)); BILIRUBIN NEGATIVE; BLOOD SMALL; COLOR COLORLESS ((YELLOW)); GLUCOSE (STRIP) >=500; KETONES NEGATIVE; LEUKOCYTES NEGATIVE; NITRITE NEGATIVE; PROTEIN (STRIP) 30; SPECIFIC GRAVITY 1.008 (1.000-1.030); UROBILINOGEN 0.2 MG/DL (0.2-1.0)
[2017-05-19 01:55] LABS: MAGNESIUM 2.3 mg/dL (1.3-2.7)
[2017-05-19 01:59] LABS: BACTERIA NONE SEEN /HPF; EPITHELIAL CELLS NONE SEEN /HPF; MUCUS NONE SEEN /LPF; RED BLOOD CELLS 0-5 /HPF (0-5); UCUL ADDED? NO; WHITE BLOOD CELLS 0-5 /HPF (0-5)
[2017-05-19 02:05] LABS: AMPHETAMINE NEGATIVE (500 ng/mL); BARBITURATES NEGATIVE (200 ng/mL); BENZODIAZEPINES NEGATIVE (150 ng/mL); BUPRENORPHINE NEGATIVE (10 ng/mL); COCAINE NEGATIVE (150 ng/mL); METHADONE NEGATIVE (200 ng/mL); METHAMPHETAMINE NEGATIVE (500 ng/mL); OPIATES (MORPHINE) NEGATIVE (100 ng/mL); OXYCODONE NEGATIVE (100 ng/mL); PHENCYCLIDINE NEGATIVE (25 ng/mL); PROPOXYPHENE NEGATIVE (300 ng/mL); THC CANNABINOIDS NEGATIVE (50 ng/mL); TRICYCLIC ANTIDEPRESSANTS NEGATIVE (300 ng/mL)
[2017-05-19 05:20] LABS: CHLORIDE 103 MEQ/L (99-109); POTASSIUM 4.1 MEQ/L (3.7-5.4); SODIUM 134 MEQ/L (136-147)
[2017-05-19 05:37] LABS: CREATININE 1.4 MG/DL (0.6-1.3); GFR ESTIMATE (CALCULATED) 57 mL/min/ (58.99-99999); GLUCOSE 496 mg/dL (70-99); UREA NITROGEN (BUN) 25 mg/dL (9-23)
[2017-05-19] MEDS ORDERED: GLUCOTROL10 MG PO (07:50)
[2017-05-19] MEDS ORDERED: ZOLPIDEM TARTRA10 MG PO (07:51)
[2017-05-19] MEDS ORDERED: ABILIFY2 MG PO (07:51)
[2017-05-19 15:44] LABS: HEMATOCRIT 31.3 % (38.0-50.0); MCH 23.3 PG (29.0-34.0); MCHC 31.9 G/DL (30.0-36.0); MCV 72.8 FL (86-99); PLATELET COUNT 237 K/uL (156-360); RBC DIS.WIDTH-CV 17.6 % (11.8-14.6); RBC DIS.WIDTH-SD 45.7 % (39-53)
[2017-05-19 15:49] LABS: CHLORIDE 105 MEQ/L (99-109); POTASSIUM 3.9 MEQ/L (3.7-5.4); SODIUM 132 MEQ/L (136-147)
[2017-05-19 15:54] LABS: CREATININE 1.2 MG/DL (0.6-1.3); GFR ESTIMATE (CALCULATED) > 59 mL/min/ (58.99-99999); PHOSPHORUS 2.2 mg/dL (2.5-4.9); UREA NITROGEN (BUN) 20 mg/dL (9-23)
[2017-05-19 15:58] LABS: GLUCOSE 196 mg/dL (70-99)
[2017-05-19 16:05] LABS: CHLORIDE 105 MEQ/L (99-109); CREATININE 1.2 MG/DL (0.6-1.3); GFR ESTIMATE (CALCULATED) > 59 mL/min/ (58.99-99999); GLUCOSE 196 mg/dL (70-99); POTASSIUM 3.9 MEQ/L (3.7-5.4); SODIUM 132 MEQ/L (136-147); UREA NITROGEN (BUN) 20 mg/dL (9-23)
[2017-05-19 22:09] LABS: SODIUM 134 mEq/L (136-147)
[2017-05-19 22:10] LABS: GLUCOSE 259 mg/dL (70-99)
[2017-05-19 22:13] LABS: CHLORIDE 108 mEq/L (99-109)
[2017-05-19 22:14] LABS: CREATININE 1.2 mg/dL (0.6-1.3); GFR ESTIMATE (CALCULATED) > 59 mL/min/ (58.99-99999)
[2017-05-19 22:15] LABS: UREA NITROGEN (BUN) 16 mg/dL (9-23)
[2017-05-20] VITALS (8 sets, daily range): BP systolic 143–173; BP diastolic 78–98
[2017-05-20 06:07] LABS: CHLORIDE 108 MEQ/L (99-109); CREATININE 1.3 MG/DL (0.6-1.3); GFR ESTIMATE (CALCULATED) > 59 mL/min/ (58.99-99999); GLUCOSE 240 mg/dL (70-99); POTASSIUM 3.9 MEQ/L (3.7-5.4); SODIUM 136 MEQ/L (136-147); UREA NITROGEN (BUN) 15 mg/dL (9-23)
[2017-05-21 05:43] LABS: HEMATOCRIT 31.6 % (38.0-50.0); HEMOGLOBIN 9.7 G/DL (12.5-16.6); MCH 22.6 PG (29.0-34.0); MCHC 30.7 G/DL (30.0-36.0); MCV 73.7 FL (86-99); PLATELET COUNT 215 K/uL (156-360); RBC DIS.WIDTH-CV 17.7 % (11.8-14.6); RBC DIS.WIDTH-SD 46.6 % (39-53); RED BLOOD COUNT 4.29 M/uL (4.00-5.50); WHITE BLOOD COUNT 5.6 K/uL (4.1-10.2)
[2017-05-21 06:00] LABS: CHLORIDE 102 MEQ/L (99-109); CREATININE 1.3 MG/DL (0.6-1.3); GFR ESTIMATE (CALCULATED) > 59 mL/min/ (58.99-99999); GLUCOSE 238 mg/dL (70-99); SODIUM 134 MEQ/L (136-147); UREA NITROGEN (BUN) 16 mg/dL (9-23)
[2017-05-21 08:09] VITALS: BP 149/90
[2017-05-21 10:11] LABS: HEMOGLOBIN A1c (GLYCOHEMOGLOB) 12.6 % (Below 5.7)
[2017-05-21 16:05] VITALS: BP 141/91
[2017-05-21 20:27] VITALS: BP 142/86
[2017-05-22 00:28] VITALS: BP 158/67
[2017-05-22 07:14] VITALS: BP 137/85
== END 2017-05-22 13:16 | disposition home or self-care (01) | DRG 638 ==
LOC: EME 00:27 → 5EAST 12:19 → EDOF 12:19 → ENRESERV 12:26 → 4WEST 14:17 → ENRESERV 05-20 10:53 → 4WEST 05-20 10:57 → ENRESERV 05-20 11:32 → 5EAST 05-20 12:14
PROVIDERS: Emergency Medicine; Family Medicine; Internal Medicine Critical Care Medicine; Specialist
DX: E11.10 Type 2 diabetes mellitus with ketoacidosis without coma (principal); K21.9 Gastro-esophageal reflux disease without esophagitis; F10.10 Alcohol abuse, uncomplicated; F10.129 Alcohol abuse with intoxication, unspecified; I12.9 Hypertensive chronic kidney disease with stage 1 through stage 4 chronic kidney disease, or unspecified chronic kidney disease; R45.851 Suicidal ideations; N18.9 Chronic kidney disease, unspecified; E78.5 Hyperlipidemia, unspecified; J30.9 Allergic rhinitis, unspecified; E87.1 Hypo-osmolality and hyponatremia; F34.1 Dysthymic disorder; F32.1 Major depressive disorder, single episode, moderate; F41.9 Anxiety disorder, unspecified; Z86.73 Personal history of transient ischemic attack (TIA), and cerebral infarction without residual deficits; Z91.19 Patient's noncompliance with other medical treatment and regimen; Z91.14 Patient's other noncompliance with medication regimen; Z83.3 Family history of diabetes mellitus; Z87.891 Personal history of nicotine dependence; Z79.4 Long term (current) use of insulin; Z93.3 Colostomy status; Z87.19 Personal history of other diseases of the digestive system; Z80.1 Family history of malignant neoplasm of trachea, bronchus and lung; Z82.49 Family history of ischemic heart disease and other diseases of the circulatory system
CPT/HCPCS: 80048; 80048 91; 81003; 82010; 82948; 83036; 83605; 83735; 84100; 85027; 87641; 93005; 99281; 99285; G0480; J1652; J1815; J7040; J7050; J7120